=== PATIENT | male | born 1970 | race Caucasian/White ===

== ENCOUNTER 2019-11-06 10:50 | Emergency (ER) | payer MEDICAID, OTHER ==
[~2019-11-06] VITALS: Ht 177.8 cm; Wt 136.1 kg
[2019-11-06 11:53] LABS: Basophils # (auto) 0.1 uL; Basophils % (auto) 0.7 % (0.0-2.0); Eosinophils # (auto) 0.3 uL; Eosinophils % (auto) 2.5 % (0.0-7.0); Hematocrit 40.3 % (41.0-53.0); Hemoglobin 13.3 g/dL (13.5-17.5); Lymphocytes # (auto) 0.9 uL; Lymphocytes % (auto) 8.6 % (10.0-50.0); Mean Corpuscular Hemoglobin 28.8 pg (28.0-32.0); Mean Corpuscular Hgb Conc. 32.9 g/dL (32.0-36.0); Mean Corpuscular Volume 87.5 fL (80.0-100.0); Monocytes # (auto) 0.7 uL; Monocytes % (auto) 7.1 % (0.0-12.0); Neutrophils # (auto) 8.4 uL; Neutrophils % (auto) 81.1 % (37.0-80.0); Platelet Count (auto) 274 10^3/uL (140-450); Red Cell Distribution Width 15.6 % (11.8-14.3); White Blood Cell 10.3 10^3/uL (4.4-10.8)
[2019-11-06 12:09] LABS: Albumin 2.9 g/dL (3.4-5.0); Anion Gap 5 (5-15); Blood Urea Nitrogen 15 mg/dL (7-18); Calcium 8.5 mg/dL (8.5-10.1); Carbon Dioxide 29 mmol/L (21-32); Chloride 106 mmol/L (98-107); Glucose 101 mg/dL (74-106); Potassium 4.1 mmol/L (3.5-5.1); Sodium 140 mmol/L (136-145)
[2019-11-06 12:15] LABS: Alanine Aminotransferase 47 U/L (16-61); Alkaline Phosphatase 61 U/L (45-117); Aspartate Aminotransferase 27 U/L (15-37); BUN/Creatinine Ratio 15.2; Bilirubin, Total 0.3 mg/dL (0.2-1.0); GFR African American 103 mL/min; GFR Non-African American 85 mL/min; Total Protein 7.3 g/dL (6.4-8.2)
[2019-11-06 14:43] VITALS: BP 138/90
[2019-11-06] MEDS ORDERED: HYDROcodone-ACET 10/325MG TAB PO ONE (15:15)
== END 2019-11-06 15:46 | disposition home or self-care (01) ==
LOC: ER 10:50
DX: S32.039A Unspecified fracture of third lumbar vertebra, initial encounter for closed fracture (principal); I10 Essential (primary) hypertension; Z87.891 Personal history of nicotine dependence; Z91.81 History of falling; W11.XXXA Fall on and from ladder, initial encounter; Y93.89 Activity, other specified; Y92.89 Other specified places as the place of occurrence of the external cause; Y99.8 Other external cause status
CPT/HCPCS: 36415; 71046; 72131; 80053; 83880; 84484; 85025; 93005

== ENCOUNTER 2025-07-10 22:53 | Emergency (ER) | payer MEDICAID ==
[~2025-07-10] VITALS: Ht 177.8 cm; Wt 136.4 kg
[2025-07-10] MEDS ORDERED: CALCIUM CHLOR(10%) 100MG/ML 10ML SYRINGE IV ONE (22:54)
[2025-07-10 23:24] VITALS: BP 0/0; PULSE 0; RESP 0; TEMP 98.4; O2SAT 0
--- NOTE | 2025-07-10 23:39 | ED.PDOC ---
CPR-HPI HPI Comments 54 y/o morbidly obese M, with a limited known history of CHF, HTN, thyroid disease, and former tobacco cigarette user, is BIBA from private residence for c/c of cardiac arrest. Per EMS personnel report, the initial call by the patient was for c/c of sudden onset of chills, this evening, after dealing with nausea, vomiting, and diarrhea, symptoms for over the past week. On scene, patient was found on the bathroom floor. He was then assisted up when he began experiencing "bbmwy-[id number] activity" before collapsing in front of EMS personnel and becoming pulseless and apneic at 2234. Interventions were began, immediately, by EMS, including CPR, I/O placement to left tibia, assisted ventilations, and epin ephrine and Dextrose/D10 administration (initial blood glucose of 35). A total of 4x rounds of epinephrine administration given prior to arrival at ED at 2252 (last dose given at 2251), with no ROSC. Further history is limited, due to patient's initial presentation. Chief Complaint: CPR Time Seen by MD: 22:52 Reviewed Notes: Group Reservations Coordinator Notes Allergies: Coded Allergies: NO KNOWN ALLERGIES (Unverified , 07/10/25) Information Source: Emergency Med Personnel Mode of Arrival: EMS Timing: Minutes Duration: Down time prior EMS: (0 minutes), Total time prior hopital: (18 minutes ) Onset: Witnessed Available Hx: Prior Cardiac Disease Inital rhythm: Asystole Treatment: CPR, Epinephrine, Other (Left tibia I/O) Response: No response Associated signs and symptoms: Other (chills) Past Medical History PAST MEDICAL HISTORY: CHF, HTN, Thyroid Surgical History: Unknown, Unobtainable Family History Family History: Family hx of HTN Social History Smoker: Non-Smoker, Quit Greater Than 1 Year Alcohol: Occasionally Drugs: Denies Drug Use Lives In: Home All Other Systems: Deferred (see HPI) Physical Exam Exam Comments Gravely ill appearing, ashen, CPR in progress upon arrival General Appearance: Obese HEENT: Other (Pupils fixed and dilated bilaterally. No blink reflex) Neck: Supple, Other (Obese, positive JVD) Respiratory: Other (No spontaneous respirations noted. Lung sounds clear bilaterally with bagging after intubation) Cardiovascular: Other (No palpable pulses. No pulses auscultated) Breast Exam: None Gastrointestinal: Soft, Other (Obese, protuberant) Genitalia: Penis, Scrotum Pelvic: Deferred Rectal: Deferred Extremities: Leg edema, Other (Cool ashen extremities) Neurologic: None, Other (Unresponsive) Cerebellar Function: NOT DONE Reflexes: None Skin: Cyanosis, Pallor Lymphatic: NOT DONE Was a procedure done? Was a procedure done?: Yes Sedation Sedation?: No Intubation Indication: Respiratory Insufficiency, Altered Mental Status Prep: Preoxygenation Pretreated with: Nothing Medicated with: Nothing Intubation Approach: Orotracheal (8.0) Intubation size: cm (22 at the lip ) Informed consent obtained: No Risks/benefits/alt described: No Differential Dx CPR Differential Diagnosis: Cardiopulmonary arrest, Dysrhythmia, Electrolyte di sorder, Heart Block, Myocardial Infarction, Pulmonary Embolus, Respiratory Failure, Ruptured Aortic Aneurysm X-Ray, Labs, Meds, VS Vital Signs Date Time Temp Pulse Resp B/P (MAP) Pulse Ox O2 Delivery O2 Flow Rate FiO2 07/10/25 23:24 Mechanical Ventilator+ 0 21 07/10/25 22:58 122 Time of 1ST Reevaluation: 23:05 Reevaluation 1ST: Patient Education/Counseling: Other (Patient is ) Family Education/Counseling: Diagnosis, Treatment, Other (Patient is ) SEPSIS Sepsis Screen Date sepsis recognized/suspect: Jul 10, 2025 Time Sepsis recognized/suspect: 2250 Recent Procedure: No On Antibiotic Therapy: No Respiratory Rate >20: No Heart Rate >90: Yes Temp<36 C (96.8 F) or >38.3 C: No SBP <90 or MAP <65 mmHG: No New Acute Mental Status Change: No Is the patient on CPAP, BIPAP,: No Vital Signs Date Time Temp Pulse Resp B/P (MAP) Pulse Ox O2 Delivery O2 Flow Rate FiO2 07/10/25 23:24 Mechanical Ventilator+ 0 21 07/10/25 22:58 122 Departure 1 Departure Time of Disposition: 23:05 Impression: Primary Impression: Cardiac arrest Disposition: 20 Condition: Other ( ) Comments 54-year-old male brought in by ambulance in full arrest. CPR was in progress. Patient had an LMA airway and paramedics were bagging. Patient received ACLS medications in the field including 4 rounds of epinephrine. ACLS and CPR were continued in the emergency department. Patient received 5 more rounds of epinephrine and bicarb and calcium with no improvement. Patient was in asystole with no palpable pulses. Recess and efforts were terminated and patient was declared at 11:05 p.m. Critical Care Note Critical Care Time?: Yes (35 min-critical care time only) Critical care comment: Total critical care time: Approximately 36 minutes Due to a high probability of clinically significant, life threatening deterioration, the patient required my highest level of preparedness to intervene emergently and I personally spent this critical care time directly and personally managing the patient. This critical care time included obtaining a history; examining the patient; pulse oximetry; ordering and review of studies; arranging urgent treatment with development of a management plan; evaluation of patient's response to treatment; frequent reassessment; and, discussions with other providers. This critical care time was performed to assess and manage the high probability of imminent, life-threatening deterioration that could result in multi-organ failure. It was exclusive of separately billable procedures and treating other patients. Heart Score Heart Score: Heart Score Response (Comments) Value History N/A 0 EKG N/A 0 Age N/A 0 Risk Factors N/A 0 Troponin N/A 0 Total 0 Stability Stability form required: No I personally scribed for ANDRZEJ HANKS MD ([email or web address]) on 07/10/25 at 23:39. Electronically submitted by Karan Alejandra ([email or web address]). ANDRZEJ HANKS MD Jul 10, 2025 23:39
--- NOTE | 2025-07-11 00:47 | RESUS ---
CODE BLUE ASSESSSMENT History of Events History of Events: 54 y/o morbidly obese M, with a limited known history of CHF, HTN, thyroid disease, and former tobacco cigarette user, is BIBA from private residence for c/c of cardiac arrest. Per EMS personnel report, the initial call by the patient was for c/c of sudden onset of chills, this evening, after dealing with nausea, vomiting, and diarrhea, symptoms for over the past week. On scene, patient was found on the bathroom floor. He was then assisted up when he began experiencing "[id number] activity" before collapsing in front of EMS personnel and becoming pulseless and apneic at 2234. Interventions were began, immediately, by EMS, including CPR, I/O placement to left tibia, assisted ventilations, and epinephrine and Dextrose/D10 administration (initial blood glucose of 35). A total of 4x rounds of epinephrine administration given prior to arrival at ED at 2252 (last dose given at 2251), with no ROSC. Initial Information Date: Jul 10, 2025 Time: 22:24 Location of Arrest: In Field Arrest Witnessed: Yes CPR started initial time: 22:24 CPR started by whom: EMS Last seen well: UNKNOWN Pre-Hospital Care: ACLS Type of arrest: Cardiac, Respiratory, Adult, Witnessed Spontaneous Respirations: No Monitoring: ECG, Pulse Oximetry, Apnea, Telemetry Crash Cart Opened and Supplies: Yes Airway Ventilation Breathing at Onset: Apneic O2 Sat by Pulse Oximetry: 0 Oxygen Delivery Method: Ambu-Bag Oxygen 100% Time of first Assisted Ventila: 22:55 Artificial Ventilation: Bag/Endo tube Intubation Size: 8.0 cuffed Intubated by: CALI MUSTAFA Intubation Attempts: 1 Intubated orally: Yes Intubated Nasaly: No Tube secured at: 22 Cricoid pressure done: No CO2 indicator used: Yes Confirmation: Auscultation, Exhaled CO2 Suctioning (Oral/Tracheal): No Circulation Circulation : Time: 22:53 Pulse Rate (adult): 0 Blood Pressure Systolic: 0 Blood Pressure Diastolic: 0 Temperature (Fahrenheit): 98.4 Procedure - IV Procedure - IV : IV start time: 22:58 IV Side: Left IV Location: Upper Arm Anterior IV Catheter Type: Saline Lock IV Placed by WILL MCGOVERN IV Gauge: 20 IV Line Care: Saline Flush Procedure - Intraosseous Site of Intraosseous: Tibia lula-medial Intraosseous inserted by: DONE BY EMS PRIOR TO ARRIVAL Medications & Response Medications and Responses #1: Medication Time: 22:53 ADULT Medications Given ADULT: Epinephrine 1 mg, D50 (amp) Route of Administration: IV Medication Comment: INITIAL BS 25 Heart Rate: 0 EKG Rhythm: PEA Blood Pressure Systolic: 0 Blood Pressure Diastolic: 0 Respiratory Rate: 0 O2 Sat by Pulse Oximetry: 0 EKG Rhythm: PEA Comment NO PULSE 2256 Medications and Responses #2: Medication Time: 22:56 ADULT Medications Given ADULT: Epinephrine 1 mg, Sodium Bacarbinate 50 meq Route of Administration: IV Heart Rate: 0 EKG Rhythm: PEA Blood Pressure Systolic: 0 Blood Pressure Diastolic: 0 Respiratory Rate: 0 O2 Sat by Pulse Oximetry: 0 EKG Rhythm: PEA Comment 2259 NO PULSE Medications and Responses #3: Medication Time: 22:59 ADULT Medications Given ADULT: Epinephrine 1 mg Route of Administration: IV Heart Rate: 0 EKG Rhythm: PEA Blood Pressure Systolic: 0 Blood Pressure Diastolic: 0 Respiratory Rate: 0 O2 Sat by Pulse Oximetry: 0 EKG Rhythm: PEA Comment NO PULSE 2302 Medications and Responses #4: Medication Time: 23:02 ADULT Medications Given ADULT: Epinephrine 1 mg, Magnesium Sulfate 2 gm, Calcium Chloride 10 mL Route of Administration: IV Medication Comment: REPEAT BS 80 Heart Rate: 0 EKG Rhythm: PEA Blood Pressure Systolic: 0 Blood Pressure Diastolic: 0 Respiratory Rate: 0 O2 Sat by Pulse Oximetry: 0 EKG Rhythm: Asystole Comment 2305 NO PULSE, PT PRONOUNCED Pacing Pacer Pads Applied and Pacing: Yes Nurses Notes [place] Coma Scale Eye Opening: None (1) [place] Coma Scale Verbal: None (1) Shila Coma Scale Motor: None (1) Glascow Total: 3 Pupil Reaction: Non Reactive Bedside Blood Glucose: 80 EKG Rhythm: Asystole Time Code Ended Time Code Ended: 23:05 Post Arrest Status: Outcome of code: Unsuccessful Time patient pronounced: 23:05 Family notified: Yes Attending called: Yes Code Team Present: SRI RASMUSSEN SILVIA RN HS, WILL RN, MARIE MARIANO RN, CALI RN, MERLINE ERTCALI RT, RENETTA RT Post Resuscitation Neurologica Pupil Size: 4 Comment: FIXED CHERYL MIDDLETON 14, 2025 00:47
[2025-07-11] MEDS ORDERED: SODIUM CHLORIDE 0.9% 1,000 ML IV ONE (05:30)
== END 2025-07-11 01:03 ==
LOC: ER 22:53 → EDBD 22:53 → ER 07-11 01:03
DX: I46.9 Cardiac arrest, cause unspecified (principal); I11.0 Hypertensive heart disease with heart failure; I50.9 Heart failure, unspecified; Z79.899 Other long term (current) drug therapy
CPT/HCPCS: 31500; 82947; 92950; 99291; J0169; J3475; J7042